=== PATIENT | female | born 1945 | race Caucasian/White ===

== ENCOUNTER 2017-12-13 14:23 | Emergency (ER) | END 2017-12-13 18:40 | disposition home or self-care (01) ==

== ENCOUNTER 2017-12-15 09:04 | Emergency (ER) | END 2017-12-15 11:00 | disposition home or self-care (01) ==

== ENCOUNTER 2018-05-28 23:23 | Emergency (ER) | END 2018-05-29 04:38 | disposition home or self-care (01) ==

== ENCOUNTER 2018-10-12 13:36 | Day surgery (SDC) | payer OTHER ==
[~2018-10-12] VITALS: Ht 152.4 cm; Wt 72.1 kg
[~2018-10-12 13:36] MED LIST: CEPH-443 PO; DEXL60CA2 PO; LACT20SO12 PO; POLY10DR19 RIGHT EYE; TRAM50TA2 PO; ZOF8 PO
[2018-10-12] MEDS ORDERED: CALCIUM (14:17)
[2018-10-12] MEDS ORDERED: VITAMIN D (14:17)
--- NOTE | 2018-10-12 14:58 | PREAC ---
Date/Time of Note Date/Time of Note DATE: 10/12/18 TIME: 14:57 Anesthesia Eval and Record Evaluation Time Pre-Procedure Interview DATE: 10/12/18 TIME: 14:57 Age 73 Sex female NPO: 8 hrs Preoperative diagnosis varices Planned procedure egd Past Medical History Past Medical History: Includes Cardio: HTN Hepatic: Cirrhosis GI: GERD Surgery & Anesthesia Issues No known issue Meds Anticoagulation: No Beta Mili within 24 hr: No Reason Beta Mili not given: Pt. not on B-Mili Active Scripts Cephalexin* (Keflex*) 500 Mg Capsule, 500 MG PO QID for 10 Days, #40 CAP Prov:MARCEL MARTINEZ MD 05/29/18 Tramadol HCl (Tramadol HCl) 50 Mg Tablet, 50 MG PO Q6 PRN for PAIN, #20 TAB Prov:LESLY OLIVER MD 12/13/17 Cephalexin* (Keflex*) 500 Mg Capsule, 500 MG PO BID for 5 Days, CAP Prov:LESLY OLIVER MD 12/13/17 Ondansetron Hcl* (Zofran* ODT) 8 mg -ODT Tab.disper, 8 MG PO Q6H PRN for NAUSEA AND OR VOMITING, #60 TAB Prov:TASHA LEUNG 04/11/16 Lactulose* (Cephulac*) 20 Gm/30 Ml Soln, 20 GM PO Q6 for 30 Days, 3 Refills Prov:TASHA LEUNG 04/11/16 Reported Medications [Vitamin D] No Conflict Check 10/12/18 [Calcium] No Conflict Check 10/12/18 Dexlansoprazole (Dexilant) 60 Mg Cap., 60 MG PO DAILY, #30 CAP 04/08/16 Discontinued Scripts Polymyxin B Sulfate-TMP* (Polymyxin B-TMP Eye Drops*) 10 Ml Drops, 1 DROP RIGHT EYE QID for 7 Days, EA Prov:LAKEISHA GUARDADO PA-C 12/15/17 Meds reviewed: Yes Allergies Coded Allergies: No Known Allergy (Unverified , 12/15/17) Allergies Reviewed: Yes Labs/Studies Labs Reviewed: Reviewed by anesthesiologist test: Negative Studies: ECG Pre-procedure Exam Airway: Adequate mouth opening, Adequate thyromental dist Mallampati: Mallampati II Teeth: Normal Lung: Normal Heart: Normal ASA Physical Status ASA physical status: 3 Emergency: None Planned Anesthetic General/MAC: MAC Pre-operative Attestations Prior to commencing anesthesia and surgery, the patient was re-evaluated, there was verification of: *The patient's identity *The results of appropriate recent lab work and preoperative vital signs *The above evaluation not changing prior to induction *Anesthetic plan, risk benefits, alternative and complications discussed with patient/family; questions answered; patient/family understands, accepts and wishes to proceed. MARY RUTH Oct 12, 2018 14:58
[2018-10-12] MEDS ORDERED: PROPOFOL 40 ML ONE (15:01)
--- NOTE | 2018-10-12 18:42 | PAC ---
Date/Time of Note Date/Time of Note DATE: 10/12/18 TIME: 18:42 Post-Anesthesia Notes Post-Anesthesia Note Activity: WNL Respiratory function: WNL Cardiovascular function: WNL Mental status: Baseline Pain reasonably controlled: Yes Hydration appropriate: Yes Nausea/Vomiting absent: Yes MARY RUTH Oct 12, 2018 18:42
== END 2018-10-12 17:40 | disposition home or self-care (01) ==
LOC: GIL 13:36
PROVIDERS: ATTEND Internal Medicine Gastroenterology
DX: I85.00 Esophageal varices without bleeding (principal); K29.50 Unspecified chronic gastritis without bleeding; I10 Essential (primary) hypertension
CPT/HCPCS: 88305; 88312

== ENCOUNTER 2019-05-17 12:56 | Day surgery (SDC) | payer OTHER ==
[~2019-05-17] VITALS: Ht 160 cm; Wt 71.0 kg
[~2019-05-17 12:56] MED LIST changes: +CALCIUM; +LACTULOSE; +OMEPRAZOLE; -POLY10DR19 RIGHT EYE; +VITAMIN D
[2019-05-17 13:58] VITALS: Ht 160 cm; Wt 71.0 kg
[2019-05-17 14:29] VITALS: BP 122/60; PULSE 61; RESP 19
[2019-05-17] MEDS ORDERED: PROPOFOL 200 MG INJ ONE (15:00)
[2019-05-17] MEDS ORDERED: PROPOFOL 40 ML ONE (15:25)
[2019-05-17] MEDS ORDERED: LIDOCAINE 100 MG SYRINGE ONE (15:25)
[2019-05-17] MEDS ORDERED: FENTAnyl 50 MCG/ML VIAL ONE (15:28)
[2019-05-17 16:05] VITALS: BP 122/63; RESP 15
== END 2019-05-17 16:54 | disposition home or self-care (01) ==
LOC: GIL 12:56
PROVIDERS: ATTEND Internal Medicine Gastroenterology
DX: I85.00 Esophageal varices without bleeding (principal); K44.9 Diaphragmatic hernia without obstruction or gangrene; K76.6 Portal hypertension; K31.89 Other diseases of stomach and duodenum
CPT/HCPCS: J2001; J3010